=== PATIENT | female | born 1980 | race Two or more races ===

== ENCOUNTER 2020-06-07 23:53 | Emergency (ER) | payer MEDICAID ==
[~2020-06-07] VITALS: Ht 162.6 cm; Wt 113.4 kg
[2020-06-08] MEDS ORDERED: Ketorolac 30mg Inj IV ONE
[2020-06-08] MEDS ORDERED: Omnipaque-300 100ml vial INJ PRN
--- NOTE | 2020-06-08 00:05 | NUR ---
ED Nurse Note: Patient brought in by ambulance 834 from home with c/o abd pain and vomiting onset 1899. Patient stated symptoms occured after having dinner. Pain is 7/10, at epigastric area. Patient denies trauma/fall/injury, denies CP/SOB/, flu like s/sx, fever/ chills. Patient is AAOx4 and ambulatory. Patient on monitor bed
--- NOTE | 2020-06-08 00:06 | NUR ---
ED Nurse Note: ERMD at bedside
[2020-06-08] MEDS ORDERED: Ketorolac 30mg Inj ONE (00:13)
--- NOTE | 2020-06-08 00:15 | NUR ---
ED Nurse Note: Blood and urine sent to lab
[2020-06-08 00:25] LABS: HEMATOCRIT 39.8 % (37.0-47.0); HEMOGLOBIN 13.7 G/DL (12.0-16.0); MEAN CORPUSCULAR VOLUME 70 FL (80-99); PLATELET COUNT 313 K/UL (150-450); RED BLOOD COUNT 5.72 M/UL (4.20-5.40); RED CELL DISTRIBUTION WIDTH 18.4 % (11.6-14.8); WHITE BLOOD COUNT 15.9 K/UL (4.8-10.8)
--- NOTE | 2020-06-08 00:27 | Emergency Room Report ---
History of Present Illness General Chief Complaint: Abdominal Pain Present Illness HPI 39-year-old female here with abdominal pain and vomiting that started earlier tonight at 7 PM. Patient says she has also had diarrhea tonight. She suffers from right upper quadrant tenderness frequently and says "I think I was exposed to hepatitis. I had bad diarrhea a few years ago." Last menstrual period was 1 week ago. Pain is sharp in nature, looking the epigastric and right upper quadrant, does not otherwise radiate. Vomiting has been nonbilious nonbloody. Is vomited twice tonight. No fevers, chills, chest pain, palpitation, shortness of breath, back pain, dysuria. 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 Patient History Last Menstrual Period: 05/2020 Now: No : 1 Para: 1 Nursing Documentation-[facility] Hx Hypertension: Yes Review of Systems All Other Systems: negative except mentioned in HPI Physical Exam Vital Signs Date Time Temp Pulse Resp B/P (MAP) Pulse Ox O2 Delivery O2 Flow Rate FiO2 06/07/20 23:50 98.8 80 17 146/96 (113) 97 Room Air Sp02 EP Interpretation: reviewed, normal General Appearance: no apparent distress, alert, non-toxic Head: normocephalic, atraumatic Eyes: bilateral eye normal inspection, bilateral eye PERRL ENT: hearing grossly normal, normal pharynx, no angioedema, normal voice Neck: full range of motion, supple/symm/no masses Respiratory: chest non-tender, lungs clear, normal breath sounds, speaking full sentences Cardiovascular #1: regular rate, rhythm, no edema Cardiovascular #2: 2+ carotid (R), 2+ carotid (L), 2+ radial (R), 2+ radial (L), 2+ dorsalis pedis (R), 2+ dorsalis pedis (L) Gastrointestinal: normal bowel sounds, soft, non-distended, no guarding, no rebound, other - Moderate epigastric and right upper quadrant tenderness on palpation Rectal: deferred Genitourinary: normal inspection, no CVA tenderness Musculoskeletal: back normal, normal range of motion, gait/station normal, non- tender Neurologic: alert, motor strength/tone normal, oriented x3, sensory intact, responsive, speech normal Psychiatric: judgement/insight normal, memory normal, mood/affect normal, no suicidal/homicidal ideation Lymphatic: no adenopathy Medical Decision Making Diagnostic Impression: Primary Impression: Abdominal pain Additional Impression: Vomiting and diarrhea ER Course Laboratory Tests Test 06/08/20 00:15 White Blood Count 15.9 K/UL (4.8-10.8) H Red Blood Count 5.72 M/UL (4.20-5.40) H Hemoglobin 13.7 G/DL (12.0-16.0) Hematocrit 39.8 % (37.0-47.0) Mean Corpuscular Volume 70 FL (80-99) L Mean Corpuscular Hemoglobin 24.0 PG (27.0-31.0) L Mean Corpuscular Hemoglobin Concent 34.5 G/DL (32.0-36.0) Red Cell Distribution Width 18.4 % (11.6-14.8) H Platelet Count 313 K/UL (150-450) Mean Platelet Volume 7.6 FL (6.5-10.1) Neutrophils (%) (Auto) % (45.0-75.0) Lymphocytes (%) (Auto) % (20.0-45.0) Monocytes (%) (Auto) % (1.0-10.0) Eosinophils (%) (Auto) % (0.0-3.0) Basophils (%) (Auto) % (0.0-2.0) Urine Color Pale yellow Urine Appearance Clear Urine pH 5 (4.5-8.0) Urine Specific [place] 1.020 (1.005-1.035) Urine Protein Negative (NEGATIVE) Urine Glucose (UA) Negative (NEGATIVE) Urine Ketones 4+ (NEGATIVE) H Urine Blood 1+ (NEGATIVE) H Urine Nitrite Negative (NEGATIVE) Urine Bilirubin Negative (NEGATIVE) Urine Urobilinogen Normal MG/DL (0.0-1.0) Urine Leukocyte Esterase Negative (NEGATIVE) Urine RBC 0-2 /HPF (0 - 2) Urine WBC 0 /HPF (0 - 2) Urine Squamous Epithelial Cells Few /LPF (NONE/OCC) Urine Bacteria None /HPF (NONE) Urine HCG, Qualitative Negative (NEGATIVE) Sodium Level 136 MMOL/L (136-145) Potassium Level 2.9 MMOL/L (3.5-5.1) L Chloride Level 97 MMOL/L (98-107) L Carbon Dioxide Level 25 MMOL/L (21-32) Anion Gap 14 mmol/L (5-15) Blood Urea Nitrogen 12 mg/dL (7-18) Creatinine 0.8 MG/DL (0.55-1.30) Estimated Glomerular Filtration Rate > 60 mL/min (>60) Glucose Level 111 MG/DL (74-106) H Calcium Level 9.0 MG/DL (8.5-10.1) Total Bilirubin 0.5 MG/DL (0.2-1.0) Aspartate Amino Transferase (AST) 16 U/L (15-37) Alanine Aminotransferase (ALT) 21 U/L (12-78) Alkaline Phosphatase 78 U/L (46-116) Total Protein 8.3 G/DL (6.4-8.2) H Albumin 4.3 G/DL (3.4-5.0) Globulin 4.0 g/dL Albumin/Globulin Ratio 1.1 (1.0-2.7) Lipase 109 U/L (73-393) Urine Opiates Screen Negative (NEGATIVE) Urine Barbiturates Screen Negative (NEGATIVE) Phencyclidine (PCP) Screen Negative (NEGATIVE) Urine Amphetamines Screen Negative (NEGATIVE) Urine Benzodiazepines Screen Negative (NEGATIVE) Urine Cocaine Screen Negative (NEGATIVE) Urine Marijuana (THC) Screen Positive (NEGATIVE) H Serum Alcohol < 3 mg/dL 39-year-old female here with abdominal pain and vomiting and diarrhea. Patient was hemodynamically stable with normal vital signs in the emergency department. She vomited one time in the ER nonbilious nonbloody. She was given Zofran with only some resolution of her nausea but said that her nausea persisted. She was then given Reglan with some improvement of her pain and nausea. However her pain persisted and she was given morphine with resolution of her pain. Also given Haldol for her nausea and vomiting and said that she felt much improved. Patient went for CT scan but became very combative in the CT scanner and was refusing the CT scan. When asked the patient why she simply said "I do not want it." The patient that we are unable to fully elucidate the cause of her abdominal pain without proper imaging. She said that despite this she was still wishing to not undergo the CT scan and was wishing to leave. Patient was told to return to the emergency department with any worsening symptoms. She expressed understanding. Signed out AGAINST MEDICAL ADVICE. Last Vital Signs Date Time Temp Pulse Resp B/P (MAP) Pulse Ox O2 Delivery O2 Flow Rate FiO2 06/07/20 23:50 98.8 80 17 146/96 (113) 97 Room Air Scripts Ondansetron Odt* (ZOFRAN ODT*) 8 Mg Tab.rapdis 8 MG ORAL Q6H PRN for Nausea & Vomiting, #12 TAB Prov: Isaac Brown M.D. 06/08/20 Referrals: NOT CHOSEN [facility]/,REFERRING (PCP) Isaac Brown M.D. Jun 08, 2020 00:27
[2020-06-08 00:31] VITALS: BP 146/96
[2020-06-08 00:49] LABS: APPEARANCE,URINE CLEAR; BILIRUBIN, URINE NEGATIVE (NEGATIVE); COLOR,URINE PALE YELLOW; GLUCOSE, URINE (UA) NEGATIVE (NEGATIVE); KETONES,URINE 4+ (NEGATIVE); LEUKOCYTE ESTERASE ,URINE NEGATIVE (NEGATIVE); NITRITE,URINE NEGATIVE (NEGATIVE); PH,URINE 5 (4.5-8.0); PROTEIN,URINE NEGATIVE (NEGATIVE); UROBILINOGEN,URINE NORMAL MG/DL (0.0-1.0)
[2020-06-08 00:51] LABS: ANION GAP 14 mmol/L (5-15); BLOOD UREA NITROGEN 12 mg/dL (7-18); CARBON DIOXIDE 25 MMOL/L (21-32); CHLORIDE 97 MMOL/L (98-107); CREATININE 0.8 MG/DL (0.55-1.30); POTASSIUM 2.9 MMOL/L (3.5-5.1); SODIUM 136 MMOL/L (136-145)
[2020-06-08 00:55] LABS: ALANINE AMINOTRANSFERASE 21 U/L (12-78); ALBUMIN 4.3 G/DL (3.4-5.0); ALBUMIN/GLOBULIN RATIO 1.1 (1.0-2.7); ALKALINE PHOSPHATASE 78 U/L (46-116); ASPARTATE AMINO TRANSFERASE 16 U/L (15-37); BILIRUBIN,TOTAL 0.5 MG/DL (0.2-1.0)
[2020-06-08] MEDS ORDERED: Metoclopramide 10mg/2ml Inj IVP ONE (01:15)
[2020-06-08] MEDS ORDERED: Haloperidol Lactate 2 MG in D5W 55 ML IVPB ONE (01:15)
--- NOTE | 2020-06-08 01:40 | NUR ---
ED Nurse Note: Pt refused to finish CT scan. Pt stated she cant stay still during the procedure. ERMD notified
[2020-06-08] MEDS ORDERED: LORazepam Inj 2mg/ml 1ml IV ONE (02:00)
[2020-06-08] MEDS ORDERED: Morphine Sulfate 4mg/ml Inj (IV USE ONLY) IVP ONE (02:00)
[2020-06-08] MEDS ORDERED: DiphenhydrAMINE 50mg/ml Inj IVP ONE (02:00)
[2020-06-08] MEDS ORDERED: ZOFRAN ODT8 MG ORAL (02:05)
--- NOTE | 2020-06-08 02:20 | NUR ---
ED Nurse Note: AMA form signed by patient. ERMD notified
--- NOTE | 2020-06-08 02:25 | NUR ---
AMA: SEE AMA FORM. Patient left AMA. Explained to the patient the risk and consequences of her decision with ERMD. pt is aox4, on room air, with stable vital signs. pt was given dc and prescription instructions, pt was able to verbalize understanding, pt id band and iv site removed without complications. pt is able to ambulate with steady gait. pt took all belongings.
[2020-06-08 02:28] VITALS: BP 138/85
== END 2020-06-08 02:29 | disposition left against medical advice (07) ==
LOC: EDBD 23:53 → EMR 06-08 00:02
DX: R10.11 Right upper quadrant pain (principal); R11.10 Vomiting, unspecified; R19.7 Diarrhea, unspecified; E87.6 Hypokalemia; I10 Essential (primary) hypertension; Z53.29 Procedure and treatment not carried out because of patient's decision for other reasons
CPT/HCPCS: 36415; 80053; 80307; 81003; 81025; 83690; 85025; 96361; 96365; 96375; G0480; J1630; J1885; J2270; J2405; J3480; J7030; Z7502; 99284; J8499